=== PATIENT | male | born 1955 | race Caucasian/White ===

== ENCOUNTER 2023-09-19 09:44 | Outpatient (CLI) | payer OTHER | END 2023-09-19 23:59 | disposition home or self-care (01) | LOC: MRI 09:44 | PROVIDERS: ATTEND Family Medicine Sports Medicine | DX: M47.23 Other spondylosis with radiculopathy, cervicothoracic region (principal); M50.13 Cervical disc disorder with radiculopathy, cervicothoracic region; M25.511 Pain in right shoulder; S43.439A Superior glenoid labrum lesion of unspecified shoulder, initial encounter; M48.00 Spinal stenosis, site unspecified; M75.101 Unspecified rotator cuff tear or rupture of right shoulder, not specified as traumatic; M48.03 Spinal stenosis, cervicothoracic region; X58.XXXA Exposure to other specified factors, initial encounter; Y93.89 Activity, other specified; Y92.89 Other specified places as the place of occurrence of the external cause; Y99.8 Other external cause status | CPT/HCPCS: 72141 ==